=== PATIENT | female | born 1995 | race Caucasian/White ===

== ENCOUNTER 2020-10-21 09:49 | Emergency (ER) | payer OTHER, SELFPAY ==
[2020-10-21 10:07] VITALS: BP 110/79; PULSE 99; RESP 18; TEMP 37.4; O2SAT 95; BMI 21.7
--- NOTE | 2020-10-21 10:28 | ED_ITS ---
HPI - COVID General: Chief Complaint: COVID symptoms Stated Complaint: Chest Tightness, COVID + Time Seen by Provider: 10/21/20 10:13 Triage information: Has fever, cough or shortness of breath . Exposure to COVID + person last 14 days History of Present Illness: HPI Narrative: Patient is a 25-year-old female comes to the ED with upper respiratory symptoms. Patient tested positive for COVID-19 at urgent care today. She has symptoms of fever, body aches and a dry cough. She describes having some mild shortness of breath/chest tightness. It does not worsen when ambulating or during exertion. Patient has had 1 Covid vac cine. COVID 19 common symptoms: positive fever(s), non-productive cough, dyspnea and body aches; negative chills, productive cough, fatigue, headache(s), throat pain, nasal congestion, nausea, vomiting or diarrhea COVID 19 other sytmptoms: negative chest pain COVID Results: No Data to Display Review of Systems Const: Reports: fever(s) and body aches; Denies: chills or fatigue Eyes: Denies: change in vision or eye discomfort ENMT: Denies: throat pain, odynophagia, nasal discharge or nasal congestion Card: Denies: chest pain, palpitations, edema, swelling of feet/ankles, dyspnea on exertion or orthopnea Resp: Reports: dyspnea and non-productive cough; Denies: productive cough GI: Denies: abdominal pain, nausea, vomiting, diarrhea, constipation or hematochezia : Denies: flank pain, dysuria or hematuria Musc: Denies: neck pain, back pain or extremity swelling Skin/Breast: Denies: rash or new lesions Neuro: Denies: headache(s), numbness in extremities or weakness in extremities Physical Exam Narrative: EXAM NARRATIVE: Patient is a healthy 25-year-old female that appears in no acute respiratory distress. She is sitting comfortably on exam bed when I am in the room. Const: COMMON NORMALS: no acute distress, patient oriented x3, healthy appearing and alert GENERAL APPEARANCE: cooperative and comfortable HENMT: COMMON NORMALS: normocephalic HEAD & SCALP: normocephalic MOUTH: Normal oral and palatal mucosa present THROAT: posterior oropharynx normal and uvula midline Eye: COMMON NORMALS: Equal, round and reactive pupils present PUPIL: Yes Equal, round and reactive pupils present Neck/C-Spine: COMMON NORMALS: supple GENERAL: Yes normal visual inspection Resp: COMMON NORMALS: normal respiratory effort, No retractions, No use of accessory muscles and clear to auscultation bilaterally EFFORT & INSPECTION: Yes able to speak in complete sentences, No tachypneic, No respiratory distress and No labored AUSCULTATION: clear to auscultation bilaterally Cardio: COMMON NORMALS: regular rate, regular rhythm, S1 normal heart sound present, S2 normal heart sound present, No gallops present (Cardio), No clicks present (Cardio), No murmurs present (Cardio) and Peripheral pulses 2+ throughout RATE: regular rate RHYTHM: regular rhythm HEART SOUNDS: S1 normal heart sound present and S2 normal heart sound present PERIPHERAL PULSES: Peripheral pulses 2+ throughout GI: COMMON NORMALS: Normal to inspection, nondistended, normoactive bowel sounds present, Soft to palpation, non-tender and no masses PALPATION: Yes Soft to palpation : COMMON NORMALS: Yes no CVA tenderness BLADDER/KIDNEY EXAM: Yes no CVA tenderness Back/Pelvis: COMMON NORMALS: no CVA tenderness Extremity: COMMON NORMALS: normal to inspection Neuro: COMMON NORMALS: patient oriented x3 and moves all extremities SENSORIUM/ORIENTATION: Yes alert Skin: GENERAL SKIN EXAM: dry skin Course Vital Signs: Vital signs: Vital Signs Temperature 99.4 F 10/21/20 10:07 Pulse Rate 99 10/21/20 10:07 Respiratory Rate 15 10/21/20 12:12 Blood Pressure 110/79 10/21/20 10:07 Pulse Oximetry 96 10/21/20 12:12 MDM - COVID MDM Narrative: Medical decision making narrative: Patient is a 25-year-old female who just tested positive for COVID-19. She has been having a dry cough, fever and body aches. Vitals are stable and patient appears in no acute distress or pain. Lungs were clear to auscultation bilaterally. Chest x-ray showed possible right basilar atelectasis. Due to patient's clinical appearance and exam I am not suspicious for any pneumonia. Patient was diagnosed with COVID-19. She was stable for discharge and sent home and given self quarantine instructions. She was told to follow-up with her PCP in 7 to 10 days for reevaluation. Return to ED precautions given. Patient stood agree with plan. Imaging Data: CXR: Attestation: I personally reviewed and interpreted this imaging study as follows: Radiologist's impression: [address] [place] [address] XRay Report Signed Patient: Nettie Jiménez Unit #: [id number] : [id number] Age/Sex: 25 / F ADM Date: 10/21/20 Loc: ER Room/Bed: Attending Dr: Ordering Provider/Ordering MD: Jorge Velazco Date of Service: 10/21/20 Procedure(s): XR chest 1V portable [id number] Accession Number(s): [id number] Report Number: [id number] PROCEDURE INFORMATION: Exam: XR Chest Exam date and time: 10/21/2020 10:29 AM Age: 25 years old Clinical indication: Shortness of breath; Additional info: SOB TECHNIQUE: Imaging protocol: XR of the chest. Views: 1 view. COMPARISON: CT abdomen pelvis w con* [id number] 09/14/2017 8:22 AM FINDINGS: Lungs: There is a hazy airspace opacity in the right lung base, which may represent atelectasis or pneumonia in the adequate clinical setting. Pleural spaces: Unremarkable. No pleural effusion. No pneumothorax. Heart/Mediastinum: Stable cardiomediastinal silhouette. Bones/joints: Mild levocurvature of the spine is present. XR/XR chest 1V portable [id number] IMPRESSION: Right basilar atelectasis versus pneumonia, clinical correlation is recommended. Dictated By: Ash Post Signed By: Ash Post Signed Date/Time: 10/21/20 1203 DD/ 1202 COVID Results: No Data to Display Discharge Plan Discharge Patient Disposition: Home Clinical Impression: COVID-19 Condition: Stable Prescriptions: No Action bupropion HCl 150 mg tablet sustained-release 12 hr 150 mg PO DAILY RF: 0 citalopram 20 mg tablet 20 mg PO DAILY RF: 0 omeprazole 20 mg capsule,delayed release(DR/EC) 20 mg PO DAILY PRN (Reason: Acid Reflux) RF: 0 Discharge Orders: Discharge ED (Routine); Ordered 07/20/21 Ordered By: Jorge Velazco Referrals: Kary Hurd MD [Primary Care Provider] - Discharge Diet: Regular Discharge Activity: Resume usual activity Patient Instructions: Viral Syndrome (ED) Activity Restrictions/Additional Instructions: Follow-up with medical provider as directed in 7 to 10 days for reevaluation. Continue self quarantine for approximately 10 days from the onset of symptoms. Drink plenty of fluids and stay hydrated. Take [id number] Tylenol or ibuprofen for any fevers. Return to the ER or your medical provider if condition worsens. Please read and understand discharge instructions. Thank you for choosing [facility] for your healthcare needs today. Please realize this is an emergency room and that we are providing you with a medical screening exam and this may not be complete and all inclusive of all the testing and or work up that you may need to determine your ailment or severity of your illness. It is very important that you follow up as instructed or that you return to the Emergency Department should you have concerns or if your condition changes or worsens in any way. Coding Level of Care Code ED Montessori Program Director for Jeffreyg Fwd Exam Comprehensive
--- NOTE | 2020-10-21 10:29 | XRR_ITS ---
PROCEDURE INFORMATION: Exam: XR Chest Exam date and time: 10/21/2020 10:29 AM Age: 25 years old Clinical indication: Shortness of breath; Additional info: SOB TECHNIQUE: Imaging protocol: XR of the chest. Views: 1 view. COMPARISON: CT abdomen pelvis w con* [id number] 09/14/2017 8:22 AM FINDINGS: Lungs: There is a hazy airspace opacity in the right lung base, which may represent atelectasis or pneumonia in the adequate clinical setting. Pleural spaces: Unremarkable. No pleural effusion. No pneumothorax. Heart/Mediastinum: Stable cardiomediastinal silhouette. Bones/joints: Mild levocurvature of the spine is present. XR/XR chest 1V portable [id number] IMPRESSION: Right basilar atelectasis versus pneumonia, clinical correlation is recommended.
[2020-10-21 11:04] VITALS: RESP 15; O2SAT 96
[2020-10-21 12:12] VITALS: RESP 15; O2SAT 96
== END 2020-10-21 12:12 | disposition home or self-care (01) ==
PROVIDERS: Emergency Provider Physician Assistant; PCP Family Medicine
DX: U07.1 COVID-19 (principal)
CPT/HCPCS: 71045; 99282

== ENCOUNTER → 2021-10-28 10:43 | Outpatient (BNVA) | payer OTHER, SELFPAY | PROVIDERS: PCP Family Medicine; Visit Provider Nurse Practitioner Women's Health | DX: Z01.419 Encounter for gynecological examination (general) (routine) without abnormal findings (principal) | CPT/HCPCS: 88175 ==

== ENCOUNTER → 2022-03-16 09:36 | Outpatient (BNVA) | payer OTHER, SELFPAY | PROVIDERS: PCP Family Medicine; Visit Provider Nurse Practitioner Women's Health | DX: Z30.9 Encounter for contraceptive management, unspecified (principal); Z30.46 Encounter for surveillance of implantable subdermal contraceptive | CPT/HCPCS: 81025 ==

== ENCOUNTER 2023-12-29 02:07 | Emergency (ER) | payer OTHER, SELFPAY ==
[2023-12-29] VITALS (7 sets, daily range): BP systolic 100–147; BP diastolic 72–100; PULSE 89–104; RESP 16; TEMP 36.5; O2SAT 95–98; BMI 24.2
--- NOTE | 2023-12-29 02:59 | XRR_ITS ---
PROCEDURE INFORMATION: Exam: XR Abdomen Exam date and time: 12/29/2023 4:05 AM Age: 28 years old Clinical indication: Abdominal pain; Generalized TECHNIQUE: Imaging protocol: Radiologic exam of the abdomen. Views: 2 Views. Upright and supine views. COMPARISON: CT abdomen pelvis w con* [id number] 09/14/2017 8:22 AM FINDINGS: Gastrointestinal tract: Paucity of small bowel gas may be secondary to fluid-filled loops of small bowel. Prominent gastric bubble with air-fluid level. Intraperitoneal space: Normal. No free air. Bones/joints: Unremarkable for age. XR/XR acute abdomen series [id number] IMPRESSION: Findings suggest possible underlying enteritis. No overt evidence for obstruction. Correlate clinically.
[2023-12-29] MEDS: ondansetron 2 mg/ML SDV 2 mL 8 MG IVP (03:05)
[2023-12-29] MEDS: sodium chloride 0.9% 1,000 ML 999 ML IV (03:05)
--- NOTE | 2023-12-29 03:05 | ED_ITS ---
HPI - Nausea/Vomiting/Diarrhea 2 General: Chief complaint: Nausea/Vomiting/Diarrhea Stated complaint: Lower/Upper abd pain Time Seen by Provider: 12/29/23 02:08 History of Present Illness: 28-year-old female who presents emergenc y room with abdominal discomfort, nausea and diarrhea. This started earlier today. She says she has issues with IBS but this is different. No fevers. No focal abdominal pain. No chest pain. No shortness of breath. No altered mental status. Related Data Home Medications Medication Instructions Recorded Confirmed bupropion HCl 150 mg tablet,12 hr 150 mg PO DAILY 10/21/20 11/10/23 sustained-release citalopram 20 mg tablet 10 mg PO DAILY 10/23/21 11/10/23 lithium carbonate 600 mg capsule 600 mg PO DAILY 10/23/21 11/10/23 Previous Rx's Medication Instructions Recorded cefdinir 300 mg capsule 300 mg PO BID 5 days #10 caps 12/29/23 ondansetron 8 mg disintegrating 8 mg PO Q6H #14 tabs 12/29/23 tablet Allergies Allergy/AdvReac Type Severity Reaction Status Date / Time No Known Allergies Allergy Verified 12/29/23 03:01 Review of Systems 2 Narrative: Constitutional symptoms: Negative except as documented in HPI. Skin symptoms: Negative except as documented in HPI. Eye symptoms: Negative except as documented in HPI. ENMT symptoms: Negative except as documented in HPI. Respiratory symptoms: Negative except as documented in HPI. Cardiovascular symptoms: Negative except as documented in HPI. Gastrointestinal symptoms: Negative except as documented in HPI. Genitourinary symptoms: Negative except as documented in HPI. Musculoskeletal symptoms: Negative except as documented in HPI. Neurologic symptoms: Negative except as documented in HPI. Psychiatric symptoms: Negative except as documented in HPI. Endocrine symptoms: Negative except as documented in HPI. PFSH ED 2 PFSH: Medical History No pertinent past medical history neghx: htn,dm,thyroid,dvt/pe PCP: Kary Hurd Bipolar disorder Surgical History History of tonsillectomy and adenoidectomy (~2007) Hx of fracture of arm (~2003) Right arm--- required surgery-2003- Performed at [facility] in [place], [place] Family History Grandfather Colon cancer Maternal-- dx age 50's Diabetes Maternal Hypertension Maternal Family/Other Colon cancer Maternal Great Grandmother--dx age unknown Grandmother Diabetes Maternal Hypertension Maternal Denies family history of Ovarian cancer Heart disease Hypercholesteremia Breast cancer Uterine cancer Thyroid disease Stroke Social History Smoking and tobacco/nicotine status: never used tobacco/nicotine Physical Exam 2 Narrative: EXAM NARRATIVE: General: Alert, no acute distress. Skin: Warm, dry. Head: Normocephalic, atraumatic. Neck: Supple, trachea midline. Eye: Extraocular movements are intact. Ears, nose, mouth and throat: mucosa moist. Cardiovascular: Regular, Normal peripheral perfusion. Respiratory: Lungs are clear to auscultation, respirations are non-labored, breath sounds are equal, Symmetrical chest wall expansion. Gastrointestinal: Soft, Nontender, Non distended Musculoskeletal: Normal ROM, no deformity. Neurological: Alert and oriented, No focal neurological deficit observed. Psychiatric: Cooperative, appropriate mood & affect. Course 2 Vital Signs: Vital signs: Vital Signs Temperature 97.7 F 12/29/23 02:57 Pulse Rate 104 H 12/29/23 04:00 Respiratory Rate 16 12/29/23 04:00 Blood Pressure 147/81 12/29/23 04:12 Pulse Oximetry 98 12/29/23 04:00 Oxygen Delivery Me thod Room Air 12/29/23 03:21 MDM - Nausea/Vomiting/Diarrhea Medical Decision Making Medical decision making: Differential diagnosis including but not limited to and based on the above HPI, review of systems and physical exam: Orders placed to evaluate differential diagnosis based on the above differential, HPI and physical exam Lab Review: Laboratory results were reviewed and interpreted by myself the emergency room physician. No leukocytosis. No anemia. No renal failure. Urine does show signs of infection and concentration which would indicate needs antibiotics and fluids. These were given. Acute abdominal series: chest x-ray: No acute process. No obvious infiltrates. No pneumothorax. No cardiomegaly. This was reviewed and interpreted by myself the emergency room physician Abdomen x-ray: Diffuse gas which would indicate likely a gastroenteritis. No evidence of free air or obstruction. This was reviewed and interpreted by myself the emergency room physician. I reviewed the patient's medical record. Reexamination: Patient remained stable. No increased work of breathing. No altered mental status. No focal motor deficits. Assessment and plan: Gastroenteritis Urinary tract infection Dehydration ?Normal saline bolus and IV Zofran. IV Rocephin. - Discharged home - Discussed findings and plan with patient. Answered any questions. - All laboratory values were reviewed and interpreted personally by myself, the ER physician - All imaging was reviewed and interpreted personally by myself, the ER physician. - Evaluation and treatment of this problem were appropriate in the emergency setting Lab Data 12/29/23 03:13 12/29/23 02:53 Laboratory Results WBC 8.50 10^3/uL (3.29-11.43) 12/29/23 03:13 RBC 4.75 10^6/uL (3.85-5.65) 12/29/23 03:13 Hgb 13.70 g/dL (11.27-16.99) 12/29/23 03:13 Hct 42.4 % (36-47) 12/29/23 03:13 MCV 89.3 fl (85-98) 12/29/23 03:13 MCH 28.8 pg (27-33) 12/29/23 03:13 MCHC 32.3 g/dL (30-55) 12/29/23 03:13 RDW 12.4 % (12.1-15.1) 12/29/23 03:13 Plt Count 219 10^3/cmm (157-399) 12/29/23 03:13 MPV 10.1 fL (7.4-10.4) 12/29/23 03:13 Neut % (Auto) 72.7 % 12/29/23 03:13 Lymph % (Auto) 16.4 % 12/29/23 03:13 Gilliam % (Auto) 7.5 % 12/29/23 03:13 Eos % (Auto) 3.1 % 12/29/23 03:13 Baso % (Auto) 0.2 % 12/29/23 03:13 Neut # (Auto) 6.18 10^3/uL (1.8-7.7) 12/29/23 03:13 Lymph # (Auto) 1.4 10^3/uL (0.8-4.8) 12/29/23 03:13 Gilliam # (Auto) 0.6 10^3/uL (0.2-0.9) 12/29/23 03:13 Eos # (Auto) 0.3 10^3/uL (0.0-0.8) 12/29/23 03:13 Baso # (Auto) 0.0 10^3/uL (0.0-0.1) 12/29/23 03:13 Nucleated RBC % (auto) 0 % 12/29/23 03:13 Nucleated RBCs # 0.0 /100WBC 12/29/23 03:13 Sodium 140 mmol/L (136-145) 12/29/23 02:53 Potassium 3.5 mmol/L (3.5-5.1) 12/29/23 02:53 Chloride 106 mmol/L (98-107) 12/29/23 02:53 Carbon Dioxide 23 mmol/L (22-29) 12/29/23 02:53 Anion Gap 14.5 (5-19) 12/29/23 02:53 BUN 14 mg/dL (6-20) 12/29/23 02:53 Creatinine 0.8 mg/dL (0.5-0.9) 12/29/23 02:53 GFR Calculation 85.4 mL/min (90-130) L 12/29/23 02:53 Glucose 95 mg/dL (65-115) 12/29/23 02:53 Calculated Osmolality 290 mOsm/kg (285-295) 12/29/23 02:53 Lactic Acid 0.5 mmol/L (0.5-2.2) 12/29/23 02:53 Calcium 9.6 mg/dL (8.5-10.5) 12/29/23 02:53 Total Bilirubin 0.4 mg/dL (0.15-1.2) 12/29/23 02:53 AST 16 U/L (0-32) 12/29/23 02:53 ALT 13 U/L (0-33) 12/29/23 02:53 Alkaline Phosphatase 57 U/L (35-105) 12/29/23 02:53 C-Reactive Protein 3.0 mg/L (0.0-4.9) 12/29/23 02:53 Total Protein 7.1 g/dL (6.6-8.7) 12/29/23 02:53 Albumin 4.4 g/dL (3.5-5.2) 12/29/23 02:53 Globulin 2.7 g/dL (1.3-4.6) 12/29/23 02:53 HCG, Qual Negative (Negative) 12/29/23 02:53 Urine Color Yellow (Yellow) 12/29/23 03:13 Urine Appearance Cloudy (CLEAR) A 12/29/23 03:13 Urine pH 6.0 (5-7) 12/29/23 03:13 Ur Specific [place] 1.034 (1.005-1.030) H 12/29/23 03:13 Urine Protein Trace (Negative) A 12/29/23 03:13 Urine Glucose (UA) Negative (Normal) 12/29/23 03:13 Urine Ketones Trace (Negative) 12/29/23 03:13 Urine Blood Negative (Negative) 12/29/23 03:13 Urine Nitrate Negative (Negative) 12/29/23 03:13 Urine Bilirubin Negative (Negative) 12/29/23 03:13 Urine Urobilinogen 1.0 mg/dL (Negative) 12/29/23 03:13 Ur Leukocyte Esterase 1+ (Negative) A 12/29/23 03:13 Urine RBC 0-2 /hpf (0-2) 12/29/23 03:13 Urine WBC 11-20 /hpf (0-5) H 12/29/23 03:13 Ur Squamous Epith Cells 11-20 /hpf (0-5) 12/29/23 03:13 Calcium Oxalate Crystal 5-10 /hpf H 12/29/23 03:13 Amorphous Sediment Not Reportable 12/29/23 03:13 Urine Bacteria Trace /hpf (NONE) 12/29/23 03:13 Hyaline Casts 4.95 /lpf 12/29/23 03:13 Urine Mucus 2+ /hpf 12/29/23 03:13 XR interpretation done by ED provider, pending radiology final review Discharge Plan Discharge Patient Disposition: Home Clinical Impression: Gastroenteritis, Dehydration, Urinary tract infection Condition: Stable Prescriptions: New ondansetron 8 mg tablet,disintegrating 8 mg PO Q6H Qty: 14 0RF Rx Instructions: Take 1/2-1 tab every 6 hours as needed for nausea and vomiting cefdinir 300 mg capsule 300 mg PO BID 5 Days Qty: 10 0RF No Action lithium carbonate 600 mg capsule 600 mg PO DAILY bupropion HCl 150 mg tablet sustained-release 12 hr 150 mg PO DAILY citalopram 20 mg tablet 10 mg PO DAILY Discharge Orders: Discharge ED (Routine); Ordered 12/29/23 Ordered By: Beatrice Ortiz Referrals: Kary Hurd MD [Primary Care Provider] - Discharge Diet: Advance as tolerated Discharge Activity: Increase activity as tolerated Patient Instructions: Dehydration (ED), Gastroenteritis (ED) Activity Restrictions/Additional Instructions: Thank you for choosing [facility] for your healthcare needs today. Please realize this is an emergency room and that we are providing you with a medical screening exam and this may not be complete and all inclusive of all the testing and or work up that you may need to determine your ailment or severity of your illness. You have been screened and evaluated and felt safe for discharge. Health conditions do change or evolve sometimes and as such it is important that you follow up with your Primary Doctor to be re checked, 3-5 days is a general good time frame for follow up. You are always welcome to return to the ED for re assessment if your symptoms are worsening or you have new concerns Coding Level of Care Code ED Hebrew Cantor for Shauna Graves
[2023-12-29 03:17] LABS: HCG, Serum Qual Negative (Negative)
[2023-12-29 03:24] LABS: Alanine Aminotransferase 13 U/L (0-33); Albumin Level 4.4 g/dL (3.5-5.2); Alkaline Phosphatase 57 U/L (35-105); Anion Gap 14.5 (5-19); Aspartate Amino Transferase 16 U/L (0-32); Blood Urea Nitrogen 14 mg/dL (6-20); Calcium 9.6 mg/dL (8.5-10.5); Carbon Dioxide 23 mmol/L (22-29); Chloride 106 mmol/L (98-107); Creatinine Clr Calc Pharmacy 103.7872; Globulin 2.7 g/dL (1.3-4.6); Glomerular Filtration Rate 85.4 mL/min (90-130); Glucose 95 mg/dL (65-115); Osmolality Calculated 290 mOsm/kg (285-295); Potassium 3.5 mmol/L (3.5-5.1); Sodium 140 mmol/L (136-145); Total Bilirubin 0.4 mg/dL (0.15-1.2); Total Protein 7.1 g/dL (6.6-8.7)
[2023-12-29 03:25] LABS: Lactic Sepsis W/Reflex 0.5 mmol/L (0.5-2.2)
[2023-12-29 03:29] LABS: Basophils % 0.2 %; Eosinophils # 0.3 10^3/uL (0.0-0.8); Eosinophils % 3.1 %; Hematocrit 42.4 % (36-47); Lymphocytes # 1.4 10^3/uL (0.8-4.8); Lymphocytes % 16.4 %; Mean Corpuscular HGB Conc 32.3 g/dL (30-55); Mean Corpuscular Hemoglobin 28.8 pg (27-33); Mean Corpuscular Volume 89.3 fl (85-98); Mean Platelet Volume 10.1 fL (7.4-10.4); Monocytes # 0.6 10^3/uL (0.2-0.9); Monocytes % 7.5 %; Neutrophils # 6.18 10^3/uL (1.8-7.7); Neutrophils % 72.7 %; Nucleated Red Blood Cells % 0 %; Platelet Count 219 10^3/cmm (157-399); Red Blood Count 4.75 10^6/uL (3.85-5.65); Red Cell Distribution Width 12.4 % (12.1-15.1)
[2023-12-29 03:33] LABS: Bilirubin Urine Negative (Negative); Blood Urine Negative (Negative); Glucose Urine UA Negative (Normal); Ketones Urine Trace (Negative); Leukocyte Esterase Urine 1+ (Negative); Nitrate Urine Negative (Negative); Protein Urine Trace (Negative); Urine Appearance Cloudy (CLEAR); Urine Color Yellow (Yellow)
[2023-12-29 03:35] LABS: Bacteria Urine Trace /hpf; Hyaline Casts Urine 4.95 /lpf; RBC Urine 0-2 /hpf (0-2)
[2023-12-29 03:43] LABS: Specific Gravity, Urine 1.034 (1.005-1.030)
[2023-12-29 03:44] LABS: Add Urine Culture? No; Mucus Urine 2+ /hpf
[2023-12-29] MEDS: cefTRIAXone 1,000 mg SDV 1000 MG IVP (04:58)
== END 2023-12-29 05:30 | disposition home or self-care (01) ==
PROVIDERS: Emergency Provider Emergency Medicine; PCP Family Medicine
DX: K52.9 Noninfective gastroenteritis and colitis, unspecified (principal); E86.0 Dehydration; N39.0 Urinary tract infection, site not specified
CPT/HCPCS: 36415; 74022; 80053; 81001; 83605; 84703; 85025; 86140; 96361; 96374; 96375; 99284; J0696; J2405; J7030

== ENCOUNTER 2024-11-06 08:45 | Day surgery (SDC) | payer OTHER, SELFPAY ==
[2024-11-06] VITALS (9 sets, daily range): BP systolic 92–121; BP diastolic 72–81; PULSE 85–98; RESP 16–18; TEMP 36.3–36.8; O2SAT 95–98; BMI 26.4
--- NOTE | 2024-11-06 04:58 | W.PM.OPSFHP ---
Same Day Surgery H&P Indication for Procedure/HPI DATE OF PROCEDURE: November 06, 2024 CHIEF COMPLAINT/INDICATIONFOR SURGICAL PROCEDURE: desires permanent sterilization PREOP DIAGNOSIS: desires permanent sterilization PLANNED PROCEDURE: Operation Date: 11/06/24 10:45 Proposed Procedures p Laparoscopic BILATERAL Salpingectomy 14043 56260 Z30.2(Bilateral) - Sonu Avalos MD s Removal Therapeutic Implant Upper LEFT ARM Nexplanon Removal(Left) - Sonu Avalos MD 29 y.o. Has Nexplanon in place since February 2024 Wants permanent sterilization and removal of nexplanon Medications/Allergies* Home Medications ?Medication ?Instructions ?Recorded ?Confirmed ?Type lithium carbonate 600 mg capsule 900 mg PO DAILY 10/23/21 11/05/24 History escitalopram oxalate 20 mg tablet 20 mg PO DAILY 10/01/24 11/05/24 History etonogestrel 68 mg subdermal 1 implant subdermal ONCE 10/01/24 11/05/24 History implant (Nexplanon) clonazepam 0.5 mg tablet 0.5 mg PO PRN 11/05/24 11/05/24 History lurasidone 20 mg tablet (Latuda) 20 mg PO QPM 11/05/24 11/05/24 History Allergies/Adverse Reactions Allergy/AdvReac Type Severity Reaction Status Date / Time No Known Allergies Allergy Verified 12/29/23 03:01 Pertinent History/Comorbid Conditions* Medical History (Updated 10/21/24 @ 22:40 by Sonu Avalos MD) No pertinent past medical history neghx: htn,dm,thyroid,dvt/pe PCP: Kary Hurd Bipolar disorder Surgical History (Updated 10/28/21 @ 10:04 by Suly Birch APN, WHNP) History of tonsillectomy and adenoidectomy (~2007) Hx of fracture of arm (~2003) Right arm--- required surgery-2003- Performed at [facility] in [place], [place] Family History (Updated 10/23/21 @ 13:34 by Estelita Elizabeth) Colon cancer Grandfather Maternal-- dx age 50's Family/Other Maternal Great Grandmother--dx age unknown Diabetes Grandfather Maternal Grandmother Maternal Hypertension Grandfather Maternal Grandmother Maternal Denies family history of Ovarian cancer Heart disease Hypercholesteremia Breast cancer Uterine cancer Thyroid disease Stroke Social History Smoking and tobacco/nicotine status: never used tobacco/nicotine Pertinent Exam Findings alert, oriented x 3, clear to auscultation bilaterally and regular rate & rhythm Recommendations Surgery/Procedure today Coding Level of Care Code Acute Code for Chg Ely
[2024-11-06 09:15] LABS: OR HCG Qualitative Urine Negative (Negative)
--- NOTE | 2024-11-06 10:07 | ANES.PREANE2 ---
Pre-Anesthetic Assessment Height/Weight: Height 1.68 m Weight 74.389 kg Temp Pulse Resp BP Pulse Ox O2 Del Method 97.6 F 90 18 108/81 98 Room Air 11/06/24 09:10 11/06/24 09:10 11/06/24 09:10 11/06/24 09:10 11/06/24 09:10 11/06/24 09:11 Preop Diagnosis: desires permanent sterilization Operation Date: 11/06/24 10:45 Proposed Procedures p Laparoscopic BILATERAL Salpingectomy 20483 19719 Z30.2(Bilateral) - Sonu Avalos MD s Removal Therapeutic Implant Upper LEFT ARM Nexplanon Removal(Left) - Sonu Avalos MD Familial anesthetic complications: none Was Beta [place] taken within 24 hours: N/A Was Clonidine taken within 24 hours: N/A Last intake: Intake Last Liquid Date 11/05/24 Last Liquid Time 23:00 Last Solid Date 11/05/24 Last Solid Time 18:30 Social No alcohol and No tobacco Exam alert, oriented x 3, clear to auscultation bilaterally and regular rate & rhythm Airway Mallampati: Class I Dentition: full Anesthetic Plan ASA status: 1 Anesthesia: General Risk of > 500 ml blood loss (7ml/kg in children): No Medications/Allergies Home Medications ?Medication ?Instructions ?Recorded ?Confirmed ?Last Taken ?Type lithium carbonate 600 mg capsule 900 mg PO DAILY 10/23/21 11/05/24 11/04/24 History ondansetron 8 mg disintegrating 8 mg PO Q6H #14 tabs 12/29/23 11/05/24 Unknown Rx tablet escitalopram oxalate 20 mg tablet 20 mg PO DAILY 10/01/24 11/05/24 11/04/24 History etonogestrel 68 mg subdermal 1 implant subdermal ONCE 10/01/24 11/05/24 11/05/24 History implant (Nexplanon) clonazepam 0.5 mg tablet 0.5 mg PO PRN 11/05/24 11/05/24 Unknown History lurasidone 20 mg tablet (Latuda) 20 mg PO QPM 11/05/24 11/05/24 11/04/24 History Allergies Allergy/AdvReac Type Severity Reaction Status Date / Time No Known Allergies Allergy Verified 12/29/23 03:01 Current Medications Generic Name Dose Route Start Last Admin Trade Name Freq PRN Reason Stop Dose Admin Sodium Chloride 1,000 mls @ 30 mls/hr 11/06/24 09:00 11/06/24 09:33 Sodium Chloride 0.9% IV 11/07/24 08:59 30 mls/hr .Q24H JONNIE Administration PFSH Anesthesia Medical History (Updated 10/21/24 @ 22:40 by Sonu Avalos MD) No pertinent past medical history neghx: htn,dm,thyroid,dvt/pe PCP: Kary Hurd Bipolar disorder Surgical History History of tonsillectomy and adenoidectomy (~2007) Hx of fracture of arm (~2003) Right arm--- required surgery-2003- Performed at [facility] [place] in [place], [place] Family History Grandfather Colon cancer Maternal-- dx age 50's Diabetes Maternal Hypertension Maternal Family/Other Colon cancer Maternal Great Grandmother--dx age unknown Grandmother Diabetes Maternal Hypertension Maternal Denies family history of Ovarian cancer Heart disease Hypercholesteremia Breast cancer Uterine cancer Thyroid disease Stroke Social History Smoking and tobacco/nicotine status: never used tobacco/nicotine
--- NOTE | 2024-11-06 11:11 | W.PM.OPSUD ---
Surgery/Procedure H&P Update DATE OF PROCEDURE: November 06, 2024 DATE H&P PERFORMED: 11/06/24 H&P UPDATE INFORMATION: I have reviewed H&P completed within last 30 days, I have examined patient prior to procedure and No changes to prior documentation PREOP DIAGNOSIS: desires permanent sterilization PLANNED PROCEDURE: Operation Date: 11/06/24 10:45 Proposed Procedures p Laparoscopic BILATERAL Salpingectomy [id number] Z30.2(Bilateral) - Sonu Avalos MD s Removal Therapeutic Implant Upper LEFT ARM Nexplanon Removal(Left) - Sonu Avalos MD
--- NOTE | 2024-11-06 12:55 | PM.OP ---
Operative Report Date of procedure: November 06, 2024 Pre-op diagnosis: desires permanent sterilization Nexplanon in place, patient wants removal Post-op diagnosis: same Post-op findings: normal uterus, tubes, and ovaries normal pelvis no adhesions or evidence of endometriosis Nexplanon, complete and intact, removed Procedure done: laparoscopic bilateral partial salpingectomy removal of nexplanon Implants: none Specimens removed/disposition: bilateral fallopian tubes, sent to pathology Nexplanon, complete and intact, discarded Surgeon: Sonu Avalos MD Crawler Tractor Operator: Jayden Berger MD Anesthesia: General Estimated blood loss (mL): 5 Complications: none Findings: see above Condition: stable Disposition: PACU Brief History: 29 y.o. desires permanent sterilization and removal of nexplanon Procedure: Informed consent was obtained. The patient was taken to the OR and placed on the table. General endotracheal anesthesia was induced. The abdomen and perineum were then prepped and draped in the usual fashion. A 5 mm subumbilical skin incision was made. A 5 mm trocar with sheath was then inserted into the peritoneal cavity under direct visualization with the laparoscope. After confirming intraperitoneal position, pneumoperitoneum was achieved. Two separate 5 mm incisions were made in the right and left mid-quadrants. 5 mm trocars with sheaths were then inserted into the peritoneal cavity under direct visualization with the laparoscope. The right fallopian tube was then identified to its fimbrial end. Starting at the fimbrial end, the mesosalpinx was then coagulated and cut using the Ligasure device. The entire fallopian tube was excised and removed via one of the ports. This was sent to pathology. There was no bleeding seen. Similarly, the left fallopian tube was identified to its fimbrial end. The entire left fallopian tube was excised and removed, sent to pathology. There was no bleeding. All instruments were then removed from the peritoneal cavity after the pneumoperitoneum was allowed to escape. The skin incisions were closed using 3-O chromic in subcuticular fashion. Dermabond was applied. The medial aspect of the left upper arm was cleaned with betadine. A 1 cm superficial incision was made. The Nexplanon was removed complete and intact, then discarded. A bandaid was applied The patient was then awakened and taken the the PACU in good condition. Postop condition: stable EBL: 5 cc Complications: none Sponge, needles, and instruments counts correct x two
[2024-11-06] MEDS: oxyCODONE-APAP 5-325 mg Tablet 1 TAB PO (13:34)
--- NOTE | 2024-11-06 13:55 | ANE.PACU2 ---
Inpatient post-anesthesia follow up: Airway intact: Yes Vital signs: Temperature 98.2 F Pulse Rate 89 Respiratory Rate 16 Blood Pressure 118/75 Pulse Oximetry 95 Oxygen Delivery Me thod Room Air Oxygen Flow Rate Fraction of Inspir ed Oxygen Hydration adequate: Yes Nausea and vomiting: No Pain level: 1 Mental status: Baseline
== END 2024-11-06 13:55 | disposition home or self-care (01) ==
PROVIDERS: Anesthesiology; PCP Family Medicine; Visit Provider Obstetrics & Gynecology
PROC: (CPT 58661; principal; 2024-11-06 10:35)
PROC: (CPT 58661; 2024-11-06 10:35)
DX: Z30.2 Encounter for sterilization (principal)
CPT/HCPCS: 58661; 81025; 88302; A4216; J1100; J2250; J2405; J2704; J3010; J3490; J7030; J9999